=== PATIENT | female | born 1965 | race Caucasian/White ===

== ENCOUNTER 2016-09-12 06:08 | Day surgery (SDC) | payer OTHER ==
[~2016-09-12 06:08] MED LIST: RINGERS SOLUTION,LACTATED 1,000 ML IV PRN
--- OUTSIDE RECORDS SUMMARY | 2016-09-12 06:12 | XMS REPORT | Continuity of Care Document ---
:1965 Author Organization [facility] ([facility]) Address [address] [place] [address] Phone [phone] Care Team Providers Name Role Phone Unavailable Primary Care Provider Unavailable Source Comments This disclosure is being made pursuant to the Care Everywhere program, applicable federal and state laws, and may not contain all informaitonavailable regarding this patient.[facility] ([facility]) Active Allergies and Adverse Reactions Not on File Current Medications Not on file Active Problems Not on file Social History Tobacco Use Types Packs/Day Years Used Date Never Assessed Plan of Care Health Maintenance Due Date Last Done Comments Hepatitis B Vaccine (1 of 3 - Primary Series) 1965 Tdap Vaccine 1977 Lipid Disorder Screening 1984 MMR Vaccine 1984 Td Vaccine 1984 Cervical Cancer Screening 03/30/2001 03/30/1998 Mammogram 2006 Influenza Vaccine: Seasonal (#1) 01/02/2016 Colonoscopy 05/24/2016 Results from Last 3 Months Not on file
[2016-09-12] MEDS ORDERED: SUCRALFATE 1 G/10 ML UDC PO ONE (07:26)
[2016-09-12] MEDS ORDERED: PANTOPRAZOLE SODIUM 40 MG in NORMAL SALINE 100 ML IV ONE (07:26)
[2016-09-12] MEDS ORDERED: RINGERS SOLUTION,LACTATED 1,000 ML IV PRN (07:26)
[2016-09-12] MEDS ORDERED: PANTOPRAZOLE SODIUM 40 MG/100 ML PIGGYBACK IV ONE (08:05)
[2016-09-12 08:28] VITALS: BP 118/76
--- NOTE | 2016-09-12 18:24 | OR ---
Operative Report - Dictated Report Narrative: Operative Report Date of operation 09/12/2016 Preoperative diagnosis: Dysphagia. GERD symptoms despite medication Postoperative diagnosis: Hiatal hernia with esophagitis and gastropathy ( pathology and CLOtest pending) Operation: EGD with biopsies for pathology and CLOtest. Esophageal balloon dilation to 20 mm Surgeon: Dr Nieto Anesthesia: GWEN GRADY CRNA Indications for procedure: The patient is a 51-year-old female referred by Dr. Bliss. She has a long history of GERD symptoms with previous EGD at [facility] for removal of foreign body and an EGD in 2013 at [facility] in [place] with dilation. She was advised follow-up in 6 months to year but did not. She has had increasing heartburn despite medication and dysphagia for solids. Findings: Inflammation above and edema at the GE junction with small hiatal hernia, gastropathy Narrative of procedure: The patient was identified preoperatively, and prior to the administration of anesthetic a multidisciplinary timeout was observed With the patient in the recumbent position, a bite-block was placed, intravenous sedation was administered, and the patient's eyes covered with a towel. The flexible fiberoptic gastroscope was advanced into the posterior pharynx which appeared normal. The supraglottic larynx appeared normal. The cords appeared normal, moved well, and opposed in the midline. The scope was advanced under direct vision into the proximal esophagus which appeared normal. The esophagus appeared freely distensible with normal mucosa down to just above the gastroesophageal junction where one patch of superficial linear esophagitis was noted. The GE junction appeared edematous but patent. There was a small hiatal hernia. The scope was advanced into the stomach proper which was insufflated with air. There was mild jennings gastritic erythema but no rosa ulcers or neoplastic lesions were appreciated including a retroflexed view of the gastric fundus which also demonstrated the small hiatal hernia and gastric side of the GE junction. The scope was redirected toward the pylorus. The pylorus appeared patent. The scope was advanced into the duodenal bulb which appeared normal. The scope was advanced further to the horizontal portion of the duodenum which appeared normal, specifically the villous architecture appeared well preserved and clear bile was present. The scope was slowly withdrawn through the duodenal bulb with confirmation that no active ulcer was present. The scope was withdrawn into the stomach and dealer compliance representative biopsies of gastric mucosa obtained for CLOtest and pathology. The biopsy sites were seen to be hemostatic. The insufflated air was removed from the stomach. A balloon dilator was deployed and withdrawn to lie across the GE junction which was then dilated to 20 mm. The balloon was left inflated for over 1 minute. There was a small amount of bleeding which stopped promptly. A biopsy of the GE junction was then obtained. The area appeared widely patent and hemostatic. The insufflated air was removed from the stomach, the scope withdrawn from the patient, and the procedure terminated. The patient tolerated the anesthetic and procedure well without complication and was transferred back to the ambulatory surgery area awake and in stable condition. The patient remained stable throughout a period of postoperative observation, was able to tolerate by mouth intake, and was up without assistance. I shared the operative findings with her and her , and she was given copies of the photographs which appear in the medical record. She was given a single dose of Protonix 40 mg IV and sucralfate 1 g prior to discharge. She was discharged home with instructions not to engage in hazardous activity today, but may return to normal activity tomorrow and advance diet as tolerated. She is to continue medications as listed in the history and physical exam. I made arrangements to contact the patient with biopsy reports and will make further recommendation based upon that result. Reviewed and electronically signed
== END 2016-09-12 06:09 | disposition home or self-care (01) ==
LOC: AMB 06:08
PROVIDERS: ATTEND Surgery
PROC: 0DB68ZX Excision of Stomach, Via Natural or Artificial Opening Endoscopic, Diagnostic (ICD-10-PCS; 2016-09-12)
PROC: 0D748ZZ Dilation of Esophagogastric Junction, Via Natural or Artificial Opening Endoscopic (ICD-10-PCS; 2016-09-12)
PROC: 0DB58ZX Excision of Esophagus, Via Natural or Artificial Opening Endoscopic, Diagnostic (ICD-10-PCS; principal; 2016-09-12 07:00)
DX: K21.0 Gastro-esophageal reflux disease with esophagitis (principal); K44.9 Diaphragmatic hernia without obstruction or gangrene; E11.9 Type 2 diabetes mellitus without complications; E78.5 Hyperlipidemia, unspecified; E03.9 Hypothyroidism, unspecified; Z68.28 Body mass index [BMI] 28.0-28.9, adult

== ENCOUNTER 2016-10-25 09:46 | Emergency (ER) | payer OTHER ==
--- OUTSIDE RECORDS SUMMARY | 2016-10-25 10:46 | XMS REPORT | Continuity of Care Document ---
:1965 Author Organization [facility] ([facility]) Address [address] [place] [address] Phone [phone] Care Team Providers Name Role Phone Unavailable Primary Care Provider Unavailable Source Comments This disclosure is being made pursuant to the Care Everywhere program, applicable federal and state laws, and may not contain all informaitonavailable regarding this patient.[facility] ([facility]) Active Allergies and Adverse Reactions [...]
[2016-10-25] MEDS ORDERED: KETOROLAC TROMETHAMINE 30 MG/ML VIAL IV ONE (10:50)
[2016-10-25] MEDS ORDERED: METOCLOPRAMIDE HCL 5 MG/ML VIAL IV ONE (10:50)
[2016-10-25] MEDS ORDERED: diphenhydrAMINE HCL 50 MG/ML VIAL IV ONE (10:50)
[2016-10-25] MEDS ORDERED: NORMAL SALINE 1,000 ML IV ONE (10:50)
[2016-10-25] MEDS ORDERED: diphenhydrAMINE HCL 50 MG/ML VIAL ONE (10:55)
[2016-10-25] MEDS ORDERED: METOCLOPRAMIDE HCL 5 MG/ML VIAL ONE (10:55)
--- NOTE | 2016-10-25 11:01 | ERNOTE ---
Headache ER HPI - Narrative Date of Service: 10/25/16 - General Presenting Symptoms: headache Time Seen by Provider: 10/25/16 10:40 Source: patient, RN notes reviewed Exam Limitations: no limitations - Immun/Allergies/Home Medications Immunizations: IMMUNIZATION HX Immunizations Up to Date Yes History of Influenza Vaccine Yes Hx Pneumococcal Vaccination More Information Required Allergies/Adverse Reactions: Allergies morphine Adverse Reaction (Mild, Verified 10/25/16 10:07) Vomiting ANESTHEIC Adverse Reaction (Mild, Uncoded 10/25/16 10:07) Nausea general, had to be admitted Home Medications: HOME MEDICATIONS Aspirin [Aspirin Enteric Coated] 81 mg PO DAILY 09/10/16 [Last Taken Unknown] Calcium Phosphate Trib/Vit D3 [Caltrate Gummy Bites] 1 each PO DAILY 09/10/16 [ Last Taken Unknown] Cyclobenzaprine HCl [Flexeril] 10 mg PO QID PRN 09/10/16 [Last Taken Unknown] Ipratropium [place] [Atrovent 0.03% Nasal [place]] 2 - 3 spray NS BID 09/10/16 [ Last Taken Unknown] Levothyroxine Sodium [Synthroid] 75 mcg PO DAILY 09/10/16 [Last Taken Unknown] Linagliptin [Tradjenta] 5 mg PO DAILY 09/10/16 [Last Taken Unknown] Lisinopril [Zestril] 20 mg PO DAILY 09/10/16 [Last Taken Unknown] Omeprazole 40 mg PO DAILY 09/10/16 [Last Taken Unknown] metFORMIN HCL [Glucophage] 1,000 mg PO BID 09/10/16 [Last Taken Unknown] traMADol HCL [Ultram] 100 mg PO QID PRN 09/10/16 [Last Taken Unknown] Ergocalciferol (Vitamin D2) [Vitamin D2] 50,000 unit PO ONCE 10/25/16 [Last Taken Unknown] Glimepiride [Amaryl] 8 mg PO DAILY@0700 10/25/16 [Last Taken Unknown] Nizatidine 300 mg PO HS 10/25/16 [Last Taken Unknown] Rosuvastatin Calcium [Crestor] 20 mg PO DAILY 10/25/16 [Last Taken Unknown] - Pain Pain Score: 8 - History of Present Illness Narrative: Virginia is a 51-year-old female brought to the emergency department by her son for a severe headache that began 2 days ago. She reports an intermittent severe pain in the right occipital region. She describes it as an electrical shock sensation. She has a history of a cervical spine fracture approximately 17 years ago, and reports that she has chronic neck pain but has never had problems with headaches. 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 The pain began while she was here working. She has taken Tylenol, tramadol, and Vicodin without any improvement. She also reports nausea but no vomiting. Date (Duration): 10/23/16 Timing of Headache: abrupt, still present Context Headache: Present: new onset Severity Maximum: Present: severe Severity-Currently: Present: severe Headache frequency: Present: no recent headache. Absent: frequent headaches, chronic headaches, occasional headaches Modifying Factors - (Improves): Denies: rest, medication Modifying Factors - (Worsens): Denies: movement, exposure to light Associated Symptoms: Reports: nausea. Denies: fever/chills, vomiting, sweating , nasal congestion, nasal drainage, facial pain, numbness/tingling, vision changes, light-headedness, dizziness, loss of consciousness, seizures Exacerbated by:: Denies: light, noise, movement, position Prior Treament: Denies: recently seen, similar symptoms before Review of Systems - Review of Systems Constitutional: Absent: recent illness, fever, chills EYE: Absent: eye pain, vision changes ENT: Absent: ear pain, nose congestion, sore throat Respiratory: Absent: shortness of breath, cough Cardiology: Absent: chest pain, syncope Gastrointestinal/Abdominal: Present: nausea. Absent: vomiting, abdominal pain Genitourinary: Present: no symptoms reported Musculoskeletal: Present: neck pain. Absent: muscle stiffness, joint pain, joint swelling Skin: Absent: rash, lesions, lumps Neurological: Present: headache. Absent: dizziness/light-headedness, weakness, numbness, tingling Endocrine: Present: no symptoms reported Hematologic/Lymphatic: Present: no symptoms reported Psych: Absent: anxiety, depressed - Patient's Past Medical History Patient History - Medical: Diabetes Type 2, GERD, Hypothyroidism, Kidney stone, Osteoarthritis, Other Patient History - Cardiac/Respiratory: No pertinent hx Patient History - Cancer: No Hx of Cancer Patient History - Surgical Procedures: Cholecystectomy, EGD, Tubal Ligation, Other - C-Spine fracture, Urology Patient History - Other: None LMP (females 10-50): Menopausal - Family History Brother Family History - Medical: No pertinent hx Family History - Cardiac/Respiratory: Coronary Heart Disease, Myocardial Infarction Family History - Cancer: No pertinent family hx Father Family History - Medical: , No pertinent hx Family History - Cardiac/Respiratory: Myocardial Infarction Family History - Cancer: No pertinent family hx Mother Family History - Medical: Osteoporosis Family History - Cardiac/Respiratory: No pertinent hx Family History - Cancer: No pertinent family hx Sister Family History - Medical: Other Family History - Cardiac/Respiratory: No pertinent hx Family History - Cancer: No pertinent family hx - Social History Living Situations: home Abuse History: No History of abuse Psych History: No pertinent hx Smoking Status: Never smoker Alcohol Use: occasionally Drug Use: none - Immunizations Immunizations Up to Date: Yes Hx Pneumococcal Vaccination: More Information Required to Determine History of Influenza Vaccine: Yes Physical Exam - Physical Exam General Appearance: Present: wd/wn, alert, mild distress Eye Exam: Normal inspection: bilateral, PERRL: bilateral, EOMI: bilateral Ears, Nose, Throat: Present: normal ENT inspection Neck: Present: nontender, supple, limited range of motion - limited extension - chronic Respiratory: Present: no respiratory distress, normal breath sounds, no accessory muscle use, lungs clear Cardiovascular/Chest: Present: regular rate, rhythm, no murmur Gastrointestinal/Abdominal: Present: normal bowel sounds, nontender, nondistended, soft Extremity Exam: Present: normal inspection, normal range of motion Neurological Exam: Present: alert, oriented, normal mood/affect, no motor/ sensory deficits Skin Exam: Present: normal color, warm/dry ED Progress - Results and Orders Patient's Lab Results:: I have reviewed the patient's lab results. - Vital Signs Patient's Vital Signs:: I have reviewed the patient's vital signs. Vital Signs: Vital Signs 10/25/16 09:55 Temperature 36.5 C Pulse Rate 129 H Respiratory 18 Rate Blood Pressure 159/92 O2 Sat by Pulse 100 Oximetry - CT/Ultrasound CT/Ultrasound Narrative: Non-contrast head CT: IMPRESSION: 1. No acute intracranial hemorrhage or mass effect. 2. Curvilinear lucency of the medial aspect of the superior right orbit seen on the coronal reconstructions, which is of unknown clinical significance. Could represent normal variant defect of the anterior cranial fossa, versus possible fracture, either acute or chronic. Correlate clinically with history of remote or recent injury. Electronically signed by Dennis Cervantes M.D.. - Progress/Reassessment Chief Complaint: Headache Progress:: Improved Plan - Plan Plan: Pain improved with meds and IVF, states she feels like she will be able to go home and rest. Labs and head CT without acute findings. To f/u with PCP as scheduled, or return if symptoms worsen. Departure Clinical Impression: Headache, acute Qualifiers: Headache type: unspecified Intractability: not intractable Qualified Code(s): R51 - Headache - Departure Disposition: Home Follow Up Needed Condition: Stable Instructions: Migraine Headache, [id number], Form - Excuse from Work, School , or Physical Activity Additional Instructions: Continue your routine medications - try taking Flexeril if needed Rest, drink plenty of fluids Return if symptoms worsen Referrals: Yadira Oseguera, DO [Primary Care Provider] -
[2016-10-25 11:07] LABS: Hematocrit 42.3 % (37.0-47.0); Hemoglobin 14.2 gm/dL (12.5-16.0); Mean Cell Volume 90.2 fl (78-100); Mean Corpuscular Hemoglobin 30.3 pg (27-31); Mean Corpuscular Hgb Conc 33.6 g/dl (32-36); Mean Platelet Volume 9.7 fl (6.0-9.5); Neutrophil # 6.3 K/mm3 (1.3-6.0); Neutrophil % 75.6 % (42-75.0); Platelet Count 292 K/mm3 (150-450); Red Blood Count 4.69 M/mm3 (4.2-5.4); Red Cell Distribution Width 12.3 % (11.5-14.0); White Blood Count 8.4 K/mm3 (4.0-10.5)
[2016-10-25 11:17] LABS: ALT 25 U/L (19-67); AST 16 U/L (0-48); Albumin * 3.9 gm/dl (3.4-5.0); Alkaline Phosphatase * 137 U/L (50-170); Anion Gap 14.9 mmol/L (6.8-13.8); BUN/Creatinine Ratio 11.5 (9.0-21.6); Bilirubin, Total 0.6 mg/dL (0.0-1.1); Blood Urea Nitrogen 9 mg/dL (3-23); Ca. Corrected For Albumin 8.8 mg/dL (8.4-10.2); Carbon Dioxide 25.1 mmol/L (24-32.6); Chloride 103 mmol/L (97-106); Glucose * 261 mg/dL (70-110); Sodium 139 mmol/L (132-142); Total Protein 7.5 gm/dL (6.2-8.2)
[2016-10-25] MEDS ORDERED: KETOROLAC TROMETHAMINE 30 MG/ML VIAL ONE (11:19)
[2016-10-25 13:15] VITALS: BP 149/92
== END 2016-10-25 13:18 | disposition home or self-care (01) ==
LOC: ER 09:46
DX: R51 Headache (principal); E03.9 Hypothyroidism, unspecified; E11.9 Type 2 diabetes mellitus without complications; Z87.442 Personal history of urinary calculi; K21.9 Gastro-esophageal reflux disease without esophagitis